=== PATIENT | male | born 1950 | race Caucasian/White ===

== ENCOUNTER 2018-05-16 13:11 | Emergency (ER) | payer MEDICARE ==
[2018-05-16 13:25] VITALS: TEMP 97.8
[2018-05-16] MEDS ORDERED: MORPHINE SULFATE 4 MG/ML SYRINGE IVP ONE (13:40)
[2018-05-16] MEDS ORDERED: PROPOFOL 10 MG/ML 20 ML VIAL IV STA (13:40)
--- NOTE | 2018-05-16 13:43 | ED ---
General Adult HPI - General Chief complaint: Extremity Injury, Upper Stated complaint: rt shoulder injury Source: patient Mode of arrival: ambulatory Limitations: no limitations - History of Present Illness Initial comments: Dictation was produced using [employer] dictation software. please excuse any grammatical, word or spelling errors. Chief Complaint: 67-year-old male presents after shoulder pain. History of Present Illness: Patient is a 67-year-old malepast medical history presents with shoulder pain. [place] and fell sideways off of his deck. Patient fell a short amount of distance. He landed on his right side. Patient had difficulty with abduction of his right shoulder. He drove all the way back to [facility] Which Is Approximately 200 Miles Where He Came for Medical Evaluation. He Presented Initially to the Urgent Care or He Was Diagnosed with Shoulder Dislocation. He Was Instructed to Come to the Emergency Department for Further Intervention. The ROS documented in this emergency department record has been reviewed and confirmed by me. Those systems with pertinent positive or negative responses have been documented in the HPI. All other systems are other negative and/or noncontributory. - Related Data Home Medications Medication Instructions Recorded Confirmed Ibuprofen [Motrin Ib] 400 mg PO Q6HR PRN 05/16/18 05/16/18 Previous Rx's Medication Instructions Recorded HYDROcodone/APAP 5-325MG [[place] 1 tab PO Q6HR PRN 3 Days #12 tab 05/16/18 5-325] Allergies Allergy/AdvReac Type Severity Reaction Status Date / Time No Known Allergies Allergy Verified 05/16/18 13:42 Review of Systems ROS Statement: Those systems with pertinent positive or pertinent negative responses have been documented in the HPI. ROS Other: All systems not noted in ROS Statement are negative. Past Medical History Past Medical History: Cancer, Osteoarthritis (OA), Prostate Disorder Additional Past Medical History / Comment(s): SKIN CANCER, prostate CA, glaucoma History of Any Multi-Drug Resistant Organisms: None Reported Past Surgical History: Joint Replacement, Tonsillectomy Additional Past Surgical History / Comment(s): SURGERY FOR GLAUCOMA, CATARACTS BOTH EYES, RIGHT KNEE REPLACEMENT, Past Anesthesia/Blood Transfusion Reactions: No Reported Reaction Past Psychological History: No Psychological Hx Reported Smoking Status: Never smoker Past Alcohol Use History: Daily Past Drug Use History: None Reported - Past Family History Mother Family Medical History: Cancer Father Family Medical History: Cancer Brother(s) Family Medical History: Cancer General Exam - General Exam Comments Initial Comments: PHYSICAL EXAM: General Impression: Alert and oriented x3, not in acute distress HEENT: Normocephalic atraumatic, extra-ocular movements intact, pupils equal and reactive to light bilaterally, mucous membranes moist. Cardiovascular: Heart regular rate and rhythm, S1&S2 audible, no murmurs, rubs or gallops Chest: Lungs clear to auscultation bilaterally, no rhonchi, no wheeze, no rales Abdomen: Bowel sounds present, abdomen soft, non-tender, non-distended, no organomegaly Musculoskeletal: Pulses present and equal in all extremities, no peripheral edema, deep sulcus sign to the right anterior shoulder Motor: Power 5/5 bilaterally, no focal deficits noted Neurological: CN II-XII grossly intact, no focal motor or sensory deficits noted Skin: Intact with no visualized rashes Psych: Normal affect and mood Limitations: no limitations Course Vital Signs 05/16/18 05/16/18 05/16/18 13:18 14:12 14:15 Temperature 97.8 F Pulse Rate 67 65 78 Respiratory 18 18 18 Rate Blood Pressure 132/90 146/79 110/69 O2 Sat by Pulse 97 97 95 Oximetry 05/16/18 05/16/18 05/16/18 14:19 14:23 14:25 Temperature Pulse Rate 83 77 77 Respiratory 16 20 18 Rate Blood Pressure 110/69 108/67 103/63 O2 Sat by Pulse 93 L 95 95 Oximetry 05/16/18 05/16/18 05/16/18 14:29 14:33 14:40 Temperature Pulse Rate 71 70 57 L Respiratory 18 18 18 Rate Blood Pressure 94/58 117/70 141/68 O2 Sat by Pulse 96 98 100 Oximetry 05/16/18 14:53 Temperature Pulse Rate 53 L Respiratory 16 Rate Blood Pressure 135/63 O2 Sat by Pulse 99 Oximetry Procedures - Procedural Sedation Procedural Sedation Start Time: 14:00 Procedural Sedation Stop Time: 14:30 Indications: fracture/dislocation reduction ASA Class: II Mallampati Airway Score: 1 Preparation: vehicle monitor technician applied, pulse oximeter, capnometry used, supplemental O2 applied, suction/airway equipment at bedside, IV secured IV Propofol Dose (mgs): 150 Complications: none Patient Tolerated Procedure: well Medical Decision Making - Medical Decision Making ED course: 67-year-old male presents with shoulder dislocation. Vital signs upon arrival are within acceptable limits. Blood pressure is 132/90. Moderate sedation was using propofol. X-ray showed anterior humeral head dislocation with Hill-Sachs lesion. Approximately 150 mg of propofol was used for bedside sedation. Shoulder reduction was performed at bedside. Postreduction x-ray shows return of he wanted to his anatomic location. Patient is placed in a sling. Patient observed in emergency department status post sedation for several minutes. At time of discharge patient was an Abhijit without complications. Hemodynamically stable, tolerating by mouth. Patient given prescription for [place] when necessary pain. Still to follow-up with orthopedic surgery upon discharge. Disposition Clinical Impression: Dislocation of shoulder region Disposition: HOME SELF-CARE Condition: Good Instructions: Shoulder Dislocation (ED) Prescriptions: HYDROcodone/APAP 5-325MG [[place] 5-325] 1 tab PO Q6HR PRN 3 Days #12 tab PRN Reason: Pain Is patient prescribed a controlled substance at d/c from ED?: Yes If prescribed controlled substance>3 days was MAPS reviewed?: Prescribed <3 Days Referrals: Saqib Glez MD [Primary Care Provider] - 1-2 days Baldev Mahoney MD [STAFF PHYSICIAN] - 1-2 days Time of Disposition: 15:12
--- NOTE | 2018-05-16 13:46 | XR ---
EXAMINATION TYPE: XR shoulder complete RT DATE OF EXAM: 05/16/2018 CLINICAL HISTORY: Right shoulder pain after slip and fall TECHNIQUE: Three views of the right shoulder are obtained. COMPARISON: None. FINDINGS: Depression of the posterior superior humeral head suggests Hill-Sachs impaction fracture in keeping with the current anterior right humeral head dislocation and overlying soft tissue swelling. Acromioclavicular joint demonstrates mild arthropathy with small marginal osteophytes. Ribs on the r ight appear grossly intact. IMPRESSION: Anterior right humeral dislocation. Depression of the posterior superior humeral head sug gests Hill-Sachs deformity/impaction fracture. No discrete Bankart fracture is seen of the glenoid.
--- NOTE | 2018-05-16 14:38 | XR ---
EXAMINATION TYPE: XR shoulder limited RT DATE OF EXAM: 05/16/2018 CLINICAL HISTORY: Post reduction images of the right shoulder after dislocation TECHNIQUE: Frontal view of the right shoulder was obtained. COMPARISON: None. FINDINGS: Prior seen Hill-Sachs deformity/impaction fracture of the posterior superior humeral head i s again appreciated. There is a possible Bankart deformity versus prominent vascular groove of the gl enoid. There is no longer evidence of right shoulder dislocation. Mild acromioclavicular arthropathy is again seen. The visualized ribs are intact and unremarkable. IMPRESSION: Relocation of the right humeral head in appropriate anatomic alignment with redemonstrati on of superior posterior Hill-Sachs impaction fracture of the humeral head and suspicion for nondispl aced bony glenoid Bankart fracture.
[2018-05-16 14:54] VITALS: BP 135/63; PULSE 53; RESP 16
== END 2018-05-16 15:38 | disposition home or self-care (01) ==
LOC: EC 13:11
DX: S43.014A Anterior dislocation of right humerus, initial encounter (principal); W01.0XXA Fall on same level from slipping, tripping and stumbling without subsequent striking against object, initial encounter; Y92.89 Other specified places as the place of occurrence of the external cause
CPT/HCPCS: 99283; 23650; 99152; 99153; 96374; 73020; 73030; J2270; J2704

== ENCOUNTER 2018-05-19 08:46 | Emergency (ER) | payer MEDICARE ==
--- NOTE | 2018-05-19 09:24 | ED ---
Upper Extremity HPI <Dom Coreas - Last Filed: 05/19/18 12:32> - General Source: patient Mode of arrival: ambulatory Limitations: no limitations <Carmelita Covarrubias - Last Filed: 05/19/18 13:01> - General Chief Complaint: Extremity Injury, Upper Stated Complaint: Shoulder Injury Time Seen by Provider: 05/19/18 09:09 - History of Present Illness Initial Comments: 67-year-old male patient presents to the emergency department today for evaluation of possible right shoulder dislocation. Patient states that he was seen here on with a shoulder dislocation after a fall. Patient states that today he was reaching up on a shelf to grab something when he felt it pop out of place again. Patient states he is having some discomfort to the right shoulder but denies any numbness or tingling. Patient denies any other injuries. Patient states he has only had the one previous dislocation of the past. Patient denies any headache, neck pain, back pain, chest pain, shortness of breath, dizziness, weakness, abdominal pain, nausea, vomiting, or difficulties with bowel movements or urination. (Carmelita Covarrubias) - Related Data Home Medications Medication Instructions Recorded Confirmed Ibuprofen [Motrin Ib] 400 mg PO Q6HR PRN 05/16/18 05/16/18 Previous Rx's Medication Instructions Recorded HYDROcodone/APAP 5-325MG [[place] 1 tab PO Q6HR PRN 3 Days #12 tab 05/16/18 5-325] Allergies Allergy/AdvReac Type Severity Reaction Status Date / Time No Known Allergies Allergy Verified 05/19/18 08:58 Review of Systems ROS Other: All systems not noted in ROS Statement are negative. <Dom Coreas - Last Filed: 05/19/18 12:32> ROS Other: All systems not noted in ROS Statement are negative. <Carmelita Covarrubias - Last Filed: 05/19/18 13:01> ROS Statement: Those systems with pertinent positive or pertinent negative responses have been documented in the HPI. Past Medical History Past Medical History: Cancer, Osteoarthritis (OA), Prostate Disorder Additional Past Medical History / Comment(s): SKIN CANCER, prostate CA, glaucoma History of Any Multi-Drug Resistant Organisms: None Reported Past Surgical History: Joint Replacement, Tonsillectomy Additional Past Surgical History / Comment(s): SURGERY FOR GLAUCOMA, CATARACTS BOTH EYES, RIGHT KNEE REPLACEMENT, Past Anesthesia/Blood Transfusion Reactions: No Reported Reaction Past Psychological History: No Psychological Hx Reported Smoking Status: Never smoker Past Alcohol Use History: Daily Past Drug Use History: None Reported - Past Family History Mother Family Medical History: Cancer Father Family Medical History: Cancer Brother(s) Family Medical History: Cancer <Carmelita Covarrubias M - Last Filed: 05/19/18 13:01> General Exam Limitations: no limitations General appearance: alert, in no apparent distress, other (This is a well- developed, well-nourished adult male patient in no acute distress. Vital signs upon presentation are temperature 97.8F, pulse 61, respirations 18, blood pressure 151/101, pulse ox 97% on room air.) Eye exam: Present: normal appearance, PERRL, EOMI. Absent: scleral icterus, conjunctival injection, periorbital swelling ENT exam: Present: normal exam, normal oropharynx, mucous membranes moist Respiratory exam: Present: normal lung sounds bilaterally. Absent: respiratory distress, wheezes, rales, rhonchi, stridor Cardiovascular Exam: Present: regular rate, normal rhythm, normal heart sounds. Absent: systolic murmur, diastolic murmur, rubs, gallop, clicks Extremities exam: Present: normal capillary refill, other (Right arm is pink, warm, and dry. Cap refills less than 3 seconds. Radial pulses 2+ and equal bilaterally. Patient has evidence of right shoulder dislocation.). Absent: normal inspection, full ROM (Decreased range of motion to the right shoulder), tenderness, pedal edema, joint swelling, calf tenderness Neurological exam: Present: alert, oriented X3, CN II-XII intact Psychiatric exam: Present: normal affect, normal mood Skin exam: Present: warm, dry, intact, normal color. Absent: rash <Carmelita Covarrubias M - Last Filed: 05/19/18 13:01> Vital Signs 05/19/18 05/19/18 05/19/18 08:56 10:34 11:57 Temperature 97.8 F 98.6 F Pulse Rate 61 57 L 64 Respiratory 18 18 18 Rate Blood Pressure 151/101 136/67 152/77 O2 Sat by Pulse 97 96 96 Oximetry 05/19/18 05/19/1818 12:04 12:10 12:12 Temperature Pulse Rate 61 73 86 Respiratory 18 16 18 Rate Blood Pressure 144/80 119/77 116/79 O2 Sat by Pulse 96 97 98 Oximetry 05/19/18 05/19/18 12:16 12:21 Temperature Pulse Rate 83 67 Respiratory 18 18 Rate Blood Pressure 118/80 118/80 O2 Sat by Pulse 97 95 Oximetry Procedures - Orthopedic Joint Reduction Joint #1 Consent Obtained: verbal consent, written consent Time Out Performed: Yes Side: right Joint Reduction Location: shoulder Analgesia: none Shoulder Technique Used (if applicable): other Post-Reduction Neuro Exam: intact Post-Reduction Vascular Exam: intact Post Reduction X-Ray Obtained: Yes Post Reduction X-Ray Results: reduced Splint Applied: Yes - Procedural Sedation Procedural Sedation Start Time: 11:57 Procedural Sedation Stop Time: 12:07 Indications: other ASA Class: II Mallampati Airway Score: 1 IV Propofol Dose (mgs): 100 Complications: none Patient Tolerated Procedure: well <Dom Coreas - Last Filed: 05/19/18 12:32> Medical Decision Making <Dom Coreas - Last Filed: 05/19/18 12:32> - Radiology Data Radiology results: report reviewed, image reviewed <Carmelita Covarrubias - Last Filed: 05/19/18 13:01> - Medical Decision Making 67-year-old male patient presented to the emergency department today for evaluation of right shoulder dislocation. Physical examination does reveal deformity to the right anterior shoulder. X-ray did demonstrate an anterior humeral head dislocation. My attending Dr. Coreas was in and did perform reduction of the right shoulder under conscious sedation. Repeat x-ray did show satisfactory reduction of the right shoulder. There is concern for Bankart lesion. Neurovascular status was intact before and after reduction. Patient was placed in a sling and given strict instructions to not use the right arm. Patient does have an appointment with orthopedics at 1530 tomorrow. Patient is urged to keep this appointment. He does have pain medication at home. Return parameters discussed in detail. He verbalizes understanding and agrees with this plan. (Carmelita Covarrubias) - Radiology Data 3 views of the right shoulder obtained. There is been a recurrent anterior dislocation of the glenohumeral joint. There is evidence of Hill-Sachs deformity. This has worsened from previous. No definite bony Bankart lesion is seen. Postreduction views would be suggested. Impression by Dr. Morfin shows recurrent anterior dislocation of the shoulder. One view x-ray of the right shoulder is obtained. Glenohumeral relationships of been restored. Hill-Sachs deformity and humeral head is again identified. A definite bony Bankart is not seen but suspected. Impression by Dr. Morfin shows satisfactory reduction of the right shoulder. (Carmelita Covarrubias) Disposition <Dom Coreas - Last Filed: 05/19/18 12:32> Is patient prescribed a controlled substance at d/c from ED?: No Time of Disposition: 12:38 <Carmelita Covarrubias - Last Filed: 05/19/18 13:01> Clinical Impression: Recurrent dislocation, right shoulder Disposition: HOME SELF-CARE Condition: Good Instructions: Shoulder Dislocation (ED) Additional Instructions: Do not use right arm. Keep arm in sling. Follow-up with orthopedics as you have planned. Return here immediately for any new, worsening, or concerning symptoms. Referrals: Saqib Glez MD [Primary Care Provider] - 1-2 days
--- NOTE | 2018-05-19 10:14 | XR ---
EXAMINATION TYPE: XR shoulder complete RT , 3 VIEWS DATE OF EXAM ORDERED: 05/19/2018 HISTORY: Pain. COMPARISON: Previous study dated 05/16/2018. FINDINGS: There has been a recurrent anterior dislocation of glenohumeral joint. There is evidence o f a Hill-Sachs deformity. This has worsened from previous. No definite bony Bankart lesion is seen. P ost reduction views would BE suggested. IMPRESSION: RECURRENT ANTERIOR DISLOCATION OF THE SHOULDER.
[2018-05-19] MEDS ORDERED: MORPHINE SULFATE 4 MG/ML SYRINGE IVP STA (10:56)
[2018-05-19] MEDS ORDERED: PROPOFOL 10 MG/ML 20 ML VIAL IV STA (11:54)
[2018-05-19 12:14] VITALS: RESP 18
--- NOTE | 2018-05-19 12:33 | XR ---
EXAMINATION TYPE: XR shoulder limited RT , ONE VIEW DATE OF EXAM ORDERED: 05/19/2018 HISTORY: Post reduction. COMPARISON: Previous study of earlier today. FINDINGS: Glenohumeral relationships have been restored. Hill-Sachs deformity in the humeral head is again identified. A definite bony Bankart is not seen but suspected. IMPRESSION: SATISFACTORY REDUCTION OF THE RIGHT SHOULDER.
[2018-05-19 13:24] VITALS: BP 131/74; PULSE 61; TEMP 98.5
== END 2018-05-19 13:33 | disposition home or self-care (01) ==
LOC: EC 08:46
DX: M24.411 Recurrent dislocation, right shoulder (principal); Z85.828 Personal history of other malignant neoplasm of skin; Z85.46 Personal history of malignant neoplasm of prostate; Z96.651 Presence of right artificial knee joint
CPT/HCPCS: 73020; 73030; 99283; 23650; 99152; 96374; J2270; J2704

== ENCOUNTER 2019-06-10 06:00 | Day surgery (SDC) | payer MEDICARE ==
[2019-06-05 12:20] VITALS: BMI 28.5
[~2019-06-10 06:00] MED LIST: LACTATED RINGERS 1,000 ML IV SCH; LIDOCAINE 1% 20 ML VIAL (10MG/ML) FOR IV START INTRADERMA PRN
[2019-06-10 06:34] VITALS: TEMP 98.1
--- NOTE | 2019-06-10 07:41 | PCN ---
PROCEDURE NOTE PROCEDURE: Bone marrow aspirate and biopsy. 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 After obtaining consent from the patient, the procedure was performed in the endoscopy suite under general anesthesia performed by the Anesthesia Team. The patient was put in the left lateral decubitus position. The right posterior superior iliac crest was localized. Skin was prepped with ChloraPrep, all sterile procedures were followed with. Two mL 1% Xylocaine was used for local anesthetic. Coamo-jet needle was inserted, 15 mL of aspirate and 1 cm core biopsy was obtained without any difficulties. Pressure applied afterwards. There was negligible blood loss. Patient tolerated the procedure very well without any immediate complications. MMODL / IJN: [id number] /
[2019-06-10 07:53] VITALS: BP 125/83; PULSE 66; RESP 18
[2019-06-10 07:54] LABS: Basophils # (A) 0.1 k/uL (0-0.2); Basophils % (A) 2 %; Eosinophils # (A) 0.2 k/uL (0-0.7); Eosinophils % (A) 4 %; HCT 44.9 % (39.0-53.0); HGB 14.7 gm/dL (13.0-17.5); Lymphocytes # (A) 0.6 k/uL (1.0-4.8); Lymphocytes % (A) 11 %; MCH 29.9 pg (25.0-35.0); MCHC 32.7 g/dL (31.0-37.0); MCV 91.4 fL (80.0-100.0); Mean Platelet Volume 7.3; Monocytes # (A) 0.4 k/uL (0-1.0); Monocytes % (A) 7 %; Neutrophils # (A) 3.9 k/uL (1.3-7.7); Neutrophils % (A) 72 %; Platelet Count 757 k/uL (150-450); RBC 4.91 m/uL (4.30-5.90); RDW 13.6 % (11.5-15.5); WBC 5.4 k/uL (3.8-10.6)
[2019-06-10 08:07] LABS: Reticulocyte % 1.1 % (0.5-2.0)
== END 2019-06-10 08:09 | disposition home or self-care (01) ==
LOC: OR 06:00
PROVIDERS: ATTEND Internal Medicine Hematology & Oncology
DX: D47.3 Essential (hemorrhagic) thrombocythemia (principal); Z85.46 Personal history of malignant neoplasm of prostate; Z79.1 Long term (current) use of non-steroidal anti-inflammatories (NSAID); Z79.82 Long term (current) use of aspirin; Z85.828 Personal history of other malignant neoplasm of skin; Z98.42 Cataract extraction status, left eye; Z98.41 Cataract extraction status, right eye; Z96.651 Presence of right artificial knee joint; Z96.611 Presence of right artificial shoulder joint; Z80.9 Family history of malignant neoplasm, unspecified
CPT/HCPCS: 38222; 85025; 85045

== ENCOUNTER 2021-09-07 08:57 | Day surgery (SDC) | payer MEDICARE ==
--- NOTE | 2021-09-07 08:24 | P.GSHP ---
History of Present Illness H&P Date: 09/07/21 CHIEF COMPLAINT: Colon screen HISTORY OF PRESENT ILLNESS: The patient is a 70-year-old male who presents for colon screen. Lower endoscopy was offered for further evaluation and management. PAST MEDICAL HISTORY: Please see list. PAST SURGICAL HISTORY: Please see list. MEDICATIONS: Please see list. ALLERGIES: Please see list. SOCIAL HISTORY: No illicit drug use FAMILY HISTORY: No reports of Crohn disease or ulcerative colitis. REVIEW OF ORGAN SYSTEMS: CONSTITUTIONAL: No reports of fevers or chills. PHYSICAL EXAM: VITAL SIGNS: Stable GENERAL: Well-developed pleasant in no acute distress. HEENT: No scleral icterus. Extraocular movements grossly intact. Moist buccal mucosa. NECK: Supple without lymphadenopathy. CHEST: Unlabored respirations. Equal bilateral excursions. CARDIOVASCULAR: Regular rate and rhythm. Distal 2+ pulses. ABDOMEN: Soft, nontender, nondistended. MUSCULOSKELETAL: No clubbing, cyanosis, or edema. ASSESSMENT: 1. Colon screen. PLAN: 1. Recommend proceeding with a lower endoscopy Past Medical History Past Medical History: Cancer, Eye Disorder, Osteoarthritis (OA), Prostate Disorder Additional Past Medical History / Comment(s): SKIN CANCER, prostate CA WITH RADIATION, glaucoma History of Any Multi-Drug Resistant Organisms: None Reported Past Surgical History: Joint Replacement, Tonsillectomy Additional Past Surgical History / Comment(s): SURGERY FOR GLAUCOMA, CATARACTS BOTH EYES, RIGHT KNEE REPLACEMENT, Past Anesthesia/Blood Transfusion Reactions: No Reported Reaction Past Psychological History: No Psychological Hx Reported Smoking Status: Never smoker Past Alcohol Use History: Occasional Past Drug Use History: None Reported - Past Family History Mother Family Medical History: Cancer Father Family Medical History: Cancer Brother(s) Family Medical History: Cancer Medications and Allergies Home Medications Medication Instructions Recorded Confirmed Type Equate Pain Med 1 tab PO Q6H PRN 09/05/21 History Hydroxyurea [Hydrea] 1,000 mg PO Q5D 09/05/21 09/05/21 History Hydroxyurea [Hydrea] 500 mg PO Q2D 09/05/21 09/05/21 History Allergies Allergy/AdvReac Type Severity Reaction Status Date / Time No Known Allergies Allergy Verified 09/05/21 11:32
[~2021-09-07 08:57] MED LIST changes: +LIDOCAINE 1% (10MG/ML) FOR IV START INTRADERMA PRN; -LIDOCAINE 1% 20 ML VIAL (10MG/ML) FOR IV START INTRADERMA PRN
[2021-09-07 09:22] VITALS: RESP 16; TEMP 98.6
[2021-09-07] MEDS ORDERED: PROPOFOL 10 MG/ML 20 ML VIAL IV ONE (09:25)
--- NOTE | 2021-09-07 09:55 | P.PCN ---
Date of Procedure: 09/07/21 Description of Procedure: PREOPERATIVE DIAGNOSIS: Colonoscopy screening POSTOPERATIVE DIAGNOSIS: Tubular adenoma ascending colon Poor prep OPERATION: Colonoscopy to the ileocecal valve and appendiceal orifice, cecum Colonoscopy with hot snare polypectomy SURGEON: Caryn Lemon MD. ANESTHESIA: MAC. INDICATIONS: The patient is an 70-year-old male who presents for colonoscopy screening. Benefits and risks were described and informed consent was obtained. DESCRIPTION OF PROCEDURE: The patient had undergone Sutab prep. The patient had been brought into the operating room and laid in the left lateral decubitus position. After adequate intravenous sedation, the rectum was examined with 2% lidocaine jelly. The prostate was unremarkable. External hemorrhoids were encountered. The rectal tone was within normal limits. No lesions were palpated in the rectal vault. An Olympus colonoscope was advanced until the cecum, ileocecal valve and appendiceal orifice were clearly viewed. The prep was poor to fair. Sigmoid diverticulosis was encountered. Colonic polyps were found and removed. No evidence of focal colitis was found. Retroflexion of the scope demonstrated grade 2 internal hemorrhoids without active bleeding or inflammation. The colon was desufflated. The patient had tolerated the procedure well. Withdrawal time was over 6 minutes. FINDINGS: Aronchick preparation quality scale 3 (1-5) Internal hemorrhoids, grade 2 External hemorrhoids, grade 2 Removal of 2 polyps: - Snare polypectomy ascending colon, 5 mm tubulovillous adenoma polyp. Fair to poor prep limiting complete assessment of the mucosa. RECOMMENDATIONS: Repeat colonoscopy in 5 years, 2025 recommend three-day colonoscopy prep, 2 day liquid Plan - Discharge Summary Discharge Rx Participant: No New Discharge Prescriptions: Continue Hydroxyurea [Hydrea] 1,000 mg PO Q5D Equate Pain Med 1 tab PO Q6H PRN PRN Reason: Pain Hydroxyurea [Hydrea] 500 mg PO Q2D Discharge Medication List Equate Pain Med 1 tab PO Q6H PRN 09/05/21 [History] Hydroxyurea [Hydrea] 1,000 mg PO Q5D 09/05/21 [History] Hydroxyurea [Hydrea] 500 mg PO Q2D 09/05/21 [History] Follow up Appointment(s)/Referral(s): Caryn Lemon MD [STAFF PHYSICIAN] - As Needed Patient Instructions/Handouts: Colorectal Polyps (DC) Activity/Diet/Wound Care/Special Instructions: Repeat colonoscopy 5 years, 2025. Colonoscopy prep 3 days advised, isis diet with prep on day 3. Discharge Disposition: HOME SELF-CARE
[2021-09-07 10:14] VITALS: BP 135/72; PULSE 75
== END 2021-09-07 10:32 | disposition home or self-care (01) ==
LOC: ORWHC2ENDO 08:57
PROVIDERS: ATTEND Surgery Plastic and Reconstructive Surgery
DX: Z12.11 Encounter for screening for malignant neoplasm of colon (principal); D12.2 Benign neoplasm of ascending colon; Z86.010 Personal history of colon polyps; M19.90 Unspecified osteoarthritis, unspecified site
CPT/HCPCS: 45385; 88305; J2704

== ENCOUNTER 2025-01-24 06:59 | Inpatient (IN) | payer MEDICARE ==
--- NOTE | 2025-01-24 07:15 | ED ---
Fall HPI - General Chief Complaint: Fall Stated Complaint: Fall Time Seen by Provider: 01/24/25 07:00 Source: patient, RN notes reviewed Mode of arrival: EMS Limitations: no limitations - History of Present Illness Initial Comments: This is a 74-year-old male who presents to the emergency department for a fall. Patient states that that he rolled out of bed this morning and landed on his bottom/left side. He developed pain to the left hip and has been unable to bear weight. Denies hitting his head or sustaining any additional injuries. Not taking any blood thinners. MD Complaint: fall - Related Data Home Medications Medication Instructions Recorded Confirmed Hydroxyurea [Hydrea] 500 mg PO DAILY 09/05/21 01/24/25 Aspirin/Acetaminophen/Caffeine 1 tab PO BID 01/24/25 01/24/25 [Excedrin Extra Strength Caplet] Allergies Allergy/AdvReac Type Severity Reaction Status Date / Time No Known Allergies Allergy Verified 01/24/25 09:48 Review of Systems ROS Statement: Those systems with pertinent positive or pertinent negative responses have been documented in the HPI. ROS Other: All systems not noted in ROS Statement are negative. Past Medical History Past Medical History: Cancer, Eye Disorder, Osteoarthritis (OA), Prostate Disorder Additional Past Medical History / Comment(s): SKIN CANCER, prostate CA WITH RADIATION, glaucoma History of Any Multi-Drug Resistant Organisms: None Reported Past Surgical History: Joint Replacement, Tonsillectomy Additional Past Surgical History / Comment(s): SURGERY FOR GLAUCOMA, CATARACTS BOTH EYES, RIGHT KNEE REPLACEMENT, Past Anesthesia/Blood Transfusion Reactions: No Reported Reaction Past Psychological History: No Psychological Hx Reported Smoking Status: Never smoker Past Alcohol Use History: Occasional Past Drug Use History: None Reported - Past Family History Mother Family Medical History: Cancer Father Family Medical History: Cancer Brother(s) Family Medical History: Cancer General Exam Limitations: no limitations General appearance: alert, in no apparent distress Head exam: Present: atraumatic, normocephalic, normal inspection Respiratory exam: Present: normal lung sounds bilaterally. Absent: respiratory distress, wheezes, rales, rhonchi, stridor Cardiovascular Exam: Present: regular rate, normal rhythm Extremities exam: Present: other (Shortening and external rotation of the left lower extremity. 2+ DP and PT pulses) Neurological exam: Present: alert, oriented X3, CN II-XII intact Psychiatric exam: Present: normal affect, normal mood Skin exam: Present: warm, dry, intact, normal color. Absent: rash Course Vital Signs 01/24/25 01/24/25 08:15 10:24 Temperature 98.3 F 98.4 F Pulse Rate 56 L 66 Respiratory 19 18 Rate Blood Pressure 149/7 144/70 O2 Sat by Pulse 97 95 Oximetry Medical Decision Making - Medical Decision Making This is a 74-year-old male who presents to the emergency department for left hip pain after a fall. Was pt. sent in by a medical professional or institution? @ -No Did you speak to anyone other than the patient for history? @ -No Did you review nursing and triage notes? @ -Yes, and I agree, it is accurate with regards to the patient's symptoms. Were old charts reviewed? @ -No Differential Diagnosis? @ -Differential Musculoskeletal Muscular strain, contusion, ligament sprain, fracture, arthritis, septic arthritis, bursitis, cellulitis, muscle spasm, nerve compression, DVT, arterial occlusion, herpes zoster, electrolyte abnormality, tumor.... This is not meant to be in all inclusive list EKG interpreted by me (3pts min.)? @ -EKG interpreted by me demonstrating the following: Ectopic atrial bradycardia. Ventricular rate 56 bpm, RI interval 178 ms, QRS duration 89 ms, QTc 437 ms X-rays interpreted by me (1pt min.)? @ -Chest x-ray obtained, my interpretation identifies no localized consolidations or infiltrates. X-ray of the left hip/AP pelvis and left femur obtained. My interpretation identifies a left intertrochanteric fracture. CT interpreted by me (1pt min.)? @ -Not obtained U/S interpreted by me (1pt. min.)? @ -Not obtained What testing was considered but not performed? (CT, X-rays, U/S, labs)? Why? @ -None What meds were considered but not given? Why? @ -None Did you discuss the management of the patient with other professionals? @ -Yes, Dr. Clemens, who accepts the patient for admission Did you reconcile home meds? @ -Yes Was smoking cessation discussed for >3mins.? @ -No Was critical care preformed (if so, how long)? @ -No Were there social determinants of health that impacted care today? How? (Homelessness, low income, unemployed, alcoholism, drug addiction, transportation, low edu. Level, literacy, decrease access to med. care, senior care, rehab)? @ -No Was there de-escalation of care discussed even if they declined? (Discuss DNR or withdrawal of care, Hospice)? @ -No What co-morbidities impacted this encounter? (DM, HTN, Smoking, COPD, CAD, Cancer, CVA, Hep., AIDS, mental health diagnosis, sleep apnea, morbid obesity)? @ -Osteoarthritis, thrombocytosis Was patient admitted / discharged? @ -Admitted. X-ray of the left hip/AP pelvis and left femur obtained demonstrating a left intertrochanteric fracture. Preoperative EKG, chest x-ray, and blood work were subsequently obtained. Chest x-ray reveals no acute process. Lab work demonstrates mild leukocytosis and is otherwise unremarkable. Patient admitted to orthopedics for left intertrochanteric fracture. Medicine consulted for medical management. Case discussed with ED attending Dr. Rodriguez. Undiagnosed new problem with uncertain prognosis? @ -None Drug Therapy requiring intensive monitoring for toxicity (Heparin, Nitro, Insulin, Cardizem)? @ -None Were any procedures done? @ -None Diagnosis/symptom? @ -Fall, left intertrochanteric fracture Acute, or Chronic, or Acute on Chronic? @ -Acute Uncomplicated (without systemic symptoms) or Complicated (systemic symptoms)? @ -Uncomplicated Side effects of treatment? @ -None Exacerbation, Progression, or Severe Exacerbation] @ -Not applicable Poses a threat to life or bodily function? @ -Yes, limits his ability to ambulate - Lab Data Result diagrams: 01/24/25 08:32 01/24/25 08:32 - Radiology Data Radiology results: report reviewed, image reviewed Disposition Clinical Impression: Fall, Fracture, intertrochanteric, left femur Disposition: ADMITTED IP TO THIS HOSP
[2025-01-24] MEDS: MORPHINE SULFATE 4 MG/ML SYRINGE IVP STA (08:25)
--- NOTE | 2025-01-24 08:27 | XR ---
EXAMINATION TYPE: XR femur LT, XR Hip LT and AP Pelvis DATE OF EXAM: 01/24/2025 8:07 AM INDICATION: Patient age:Male; 74 years old; Reason for study: Fall; pain COMPARISON: None TECHNIQUE: The left femur was examined in AP and lateral projections. The left hip was examined in AP and lateral projections with additional AP pelvic projection. FINDINGS: Acute displaced comminuted left proximal femur intertrochanteric fracture with lateral apex angulation and shortening. No dislocation. No significant surrounding soft tissue swelling. Degenera tive changes of the visualized lumbar spine. Multiple pelvic phleboliths identified. IMPRESSION: Acute displaced comminuted left proximal femur intertrochanteric fracture with angulation. [facility], , 01/24/2025 8:24 AM
--- NOTE | 2025-01-24 08:29 | XR ---
EXAMINATION TYPE: XR chest 1V DATE OF EXAM: 01/24/2025 8:07 AM COMPARISON: None TECHNIQUE: XR chest 1V Frontal view of the chest. CLINICAL INDICATION:Male, 74 years old with history of Fall; pain FINDINGS: Lungs/Pleura: There is no evidence of pleural effusion, focal consolidation, or pneumothorax. Pulmonary vascularity: Unremarkable. Heart/mediastinum: Cardiomediastinal silhouette is prominent in size. Musculoskeletal: No acute osseous pathology. IMPRESSION: No acute cardiopulmonary disease/process. [facility], , 01/24/2025 8:27 AM
[2025-01-24] MEDS ORDERED: HYDROcodone/APAP 5-325MG 1 EACH TAB PO PRN (08:35)
[2025-01-24] MEDS ORDERED: NALOXONE 0.4 MG/ML 1 ML VIAL IV PRN (08:35)
[2025-01-24] MEDS ORDERED: ACETAMINOPHEN TAB 325 MG TAB PO PRN (08:35)
[2025-01-24] MEDS ORDERED: MORPHINE SULFATE 4 MG/ML SYRINGE IV PRN (08:35)
[2025-01-24 08:38] LABS: Basophils # (A) 0.04 10*3/uL (0.00-0.10); Basophils % (A) 0.4 %; Eosinophils # (A) 0.03 10*3/uL (0.04-0.35); Eosinophils % (A) 0.3 %; HGB 13.6 g/dL (13.0-17.0); Lymphocytes # (A) 0.44 10*3/uL (0.90-5.00); Lymphocytes % (A) 4.1 %; MCH 38.5 pg (27.0-32.0); MCHC 34.9 g/dL (32.0-37.0); MCV 110.5 fL (80.0-97.0); Mean Platelet Volume 9.4 fL (9.5-12.2); Monocytes # (A) 0.74 10*3/uL (0.20-1.00); Neutrophils # (A) 9.33 10*3/uL (1.80-7.70); Neutrophils % (A) 87.8 %; Platelet Count 589 10*3/uL (140-440); RBC 3.53 10*6/uL (4.40-5.60); RDW 12.3 % (11.5-14.5); WBC 10.62 10*3/uL (4.50-10.00)
[2025-01-24 08:53] LABS: ALT 18 U/L (4-49); AST 22 U/L (17-59); African American GFR (CKD) 84 (>60 ml/min/1.73 sqM); Alkaline Phosphatase 78 U/L (38-126); Anion Gap 5 mmol/L; Blood Urea Nitrogen 14 mg/dL (9-20); Calcium 9.1 mg/dL (8.4-10.2); Carbon Dioxide 28 mmol/L (22-30); Chloride 106 mmol/L (98-107); Glucose 138 mg/dL (74-99); Non-African American GFR(CKD) 73 (>60 ml/min/1.73 sqM); Potassium 4.7 mmol/L (3.5-5.1); Sodium 139 mmol/L (137-145); Total Bilirubin 0.7 mg/dL (0.2-1.3); Total Protein 6.7 g/dL (6.3-8.2)
[2025-01-24 08:58] LABS: Prothrombin Time 10.7 sec (10.0-12.5)
[2025-01-24 10:01] LABS: Spherocytes Present
[2025-01-24] MEDS: PANTOPRAZOLE 40 MG/10 ML VIAL IV SCH (10:02)
[2025-01-24] MEDS ORDERED: HYDROmorphone 0.5 MG/0.5 ML SYRINGE IVP PRN ×2 (10:18)
[2025-01-24] MEDS ORDERED: NA PHOS,M-B/NA PHOS,DI-BA 133 ML ENEMA RECTAL PRN (10:18)
[2025-01-24] MEDS ORDERED: bisacodyL 10 MG SUPP RECTAL PRN (10:18)
[2025-01-24] MEDS ORDERED: MAGNESIUM HYDROXIDE 2,400 MG/30 ML CUP PO PRN (10:18)
[2025-01-24] MEDS: HYDROmorphone 0.5 MG/0.5 ML SYRINGE IVP PRN (11:03)
--- NOTE | 2025-01-24 12:52 | P.HPOR ---
History of Present Illness H&P Date: 01/24/25 Chief Complaint: Left IT hip fracture Patient is seen at bedside this morning. He was admitted through the ED early this morning after suffering a fall at home resulting in a left hip fracture. He has pain at the left hip as expected but denies any other new complaints. He denies numbness, tingling or calf pain. Review of systems is negative for fever, chills, chest pain, shortness of breath or other Review of Systems All systems: negative Constitutional: Denies chills, Denies fever Eyes: denies blurred vision, denies pain Ears, nose, mouth and throat: Denies headache, Denies sore throat Cardiovascular: Denies chest pain, Denies shortness of breath Respiratory: Denies cough Gastrointestinal: Denies abdominal pain, Denies diarrhea, Denies nausea, Denies vomiting Musculoskeletal: Denies myalgias Integumentary: Denies pruritus, Denies rash Neurological: Denies numbness, Denies weakness Psychiatric: Denies anxiety, Denies depression Endocrine: Denies fatigue, Denies weight change Past Medical History Past Medical History: Cancer, Eye Disorder, Osteoarthritis (OA), Prostate Disorder Additional Past Medical History / Comment(s): SKIN CANCER, prostate CA WITH RADIATION, glaucoma History of Any Multi-Drug Resistant Organisms: None Reported Past Surgical History: Joint Replacement, Tonsillectomy Additional Past Surgical History / Comment(s): SURGERY FOR GLAUCOMA, CATARACTS BOTH EYES, RIGHT KNEE REPLACEMENT, Past Anesthesia/Blood Transfusion Reactions: No Reported Reaction Past Psychological History: No Psychological Hx Reported Smoking Status: Never smoker Past Alcohol Use History: Occasional Past Drug Use History: None Reported - Past Family History Mother Family Medical History: Cancer Father Family Medical History: Cancer Brother(s) Family Medical History: Cancer Medications and Allergies Home Medications Medication Instructions Recorded Confirmed Type RX: Hydroxyurea [Hydrea] 500 mg PO DAILY 09/05/21 01/24/25 History Aspirin/Acetaminophen/Caffeine 1 tab PO BID 01/24/25 01/24/25 History [Excedrin Extra Strength Caplet] Allergies Allergy/AdvReac Type Severity Reaction Status Date / Time No Known Allergies Allergy Verified 01/24/25 09:48 Physical Examination Inspection of the lower extremities shows a shortened externally rotated left lower extremity. There are no wounds, erythema or ecchymoses. The knee is nontender without effusion. He has painless range of motion of the knee, ankle foot and toes. Range of motion of the left hip is not tested due to fracture. Neurovascular status is intact throughout the lower extremity with motor and sensation fully intact. Calf is soft and nontender. 2+ dorsalis pedis pulse and less than 2 second cap refill is present. Results Left IT femur fracture with angulation - Labs Labs: Abnormal Lab Results - Last 24 Hours (Table) 01/24/25 01/24/25 Range/Units 08:32 08:32 WBC 10.62 H (4.50-10.00) 10*3/uL RBC 3.53 L (4.40-5.60) 10*6/uL Hct 39.0 L (39.6-50.0) % MCV 110.5 H (80.0-97.0) fL MCH 38.5 H (27.0-32.0) pg Plt Count 589 H (140-440) 10*3/uL MPV 9.4 L (9.5-12.2) fL Neutrophils # 9.33 H (1.80-7.70) 10*3/uL Lymphocytes # 0.44 L (0.90-5.00) 10*3/uL Eosinophils # 0.03 L (0.04-0.35) 10*3/uL Glucose 138 H (74-99) mg/dL H & H 01/24/25 Range/Units 08:32 Hgb 13.6 (13.0-17.0) g/dL Hct 39.0 L (39.6-50.0) % Coagulation 01/24/25 Range/Units 08:32 INR 1.0 (<1.2) Result Diagrams: 01/24/25 08:32 01/24/25 08:32 - Diagnostic results Hip x-ray: report reviewed, image reviewed Assessment and Plan (1) Fracture, intertrochanteric, left femur Narrative/Plan: Plan is to proceed with Gamma nail/IM hip screw for left IT femur fracture, tomorrow morning, 01/25/25. Patient has been informed of risks and benefits. He desires to proceed. He has been placed NPO after MN. Procedure and consent has been ordered. Anesthesia has been notified. He will likely need assistance with D/C planning and ECF placement post op. Continue pain management, medical management, and DVT prophylaxis. Current Visit: Yes Status: Acute Priority: Medium Code(s): S72.142A - DISPLACED INTERTROCHANTERIC FRACTURE OF LEFT FEMUR, INIT SNOMED Code(s): 534477328 Time with Patient: Less than 30
[2025-01-24] MEDS: LACTATED RINGERS 1,000 ML IV SCH (19:00)
[2025-01-24] MEDS: HYDROcodone/APAP 5-325MG 1 EACH TAB PO PRN (20:52)
[2025-01-24] MEDS: SENNOSIDES-DOCUSATE SODIUM 1 EACH TAB PO SCH (20:52)
[2025-01-24] MEDS: ASPIRIN-ACET-CAFF 250-250-65MG 1 EACH TAB PO SCH (20:53)
--- NOTE | 2025-01-24 21:50 | P.CONS ---
History of Present Illness - Reason for Consult Consult date: 01/24/25 Medical management/surgical clearance - Chief Complaint Fall/hip pain - History of Present Illness 74-year-old male, with history of osteoarthritis and prostate disorder, who presents to the emergency department for a fall. Patient states that that he rolled out of bed this morning and landed on his bottom/left side. He developed pain to the left hip and has been unable to bear weight. Denies hitting his head or sustaining any additional injuries. Not taking any blood thinners. Blood work reveals WBC of 10.6, hemoglobin of 13.6 and platelet count of 589, sodium 139, potassium 4.7, BUN/creatinine 14/1.2 and blood glucose of 138 EKG interpreted by me demonstrating the following: Ectopic atrial bradycardia. Ventricular rate 56 bpm, VT interval 178 ms, QRS duration 89 ms, QTc 437 ms -Chest x-ray obtained, no localized consolidations or infiltrates. -X-ray of the left hip/AP pelvis and left femur obtained; left intertrochanteric fracture. Review of Systems REVIEW OF SYSTEMS: CONSTITUTIONAL: No fever, no malaise, no fatigue. HEENT: No recent visual problems or hearing problems. Denied any sore throat. CARDIOVASCULAR: No chest pain, orthopnea, PND, no palpitations, no syncope. PULMONARY: No shortness of breath, no cough, no hemoptysis. GASTROINTESTINAL: No diarrhea, no nausea, no vomiting, no abdominal pain. NEUROLOGICAL: No headaches, no weakness, no numbness. HEMATOLOGICAL: Denies any bleeding or petechiae. GENITOURINARY: Denies any burning micturition, frequency, or urgency. MUSCULOSKELETAL/RHEUMATOLOGICAL: Denies any joint pain, swelling, or any muscle pain. ENDOCRINE: Denies any polyuria or polydipsia. The rest of the 14-point review of systems is negative. Past Medical History Past Medical History: Cancer, Eye Disorder, Osteoarthritis (OA), Prostate Disorder Additional Past Medical History / Comment(s): SKIN CANCER, prostate CA WITH RADIATION, glaucoma History of Any Multi-Drug Resistant Organisms: None Reported Past Surgical History: Joint Replacement, Tonsillectomy Additional Past Surgical History / Comment(s): SURGERY FOR GLAUCOMA, CATARACTS BOTH EYES, RIGHT KNEE REPLACEMENT, Past Anesthesia/Blood Transfusion Reactions: No Reported Reaction Past Psychological History: No Psychological Hx Reported Smoking Status: Never smoker Past Alcohol Use History: Occasional Additional Past Alcohol Use History / Comment(s): 2-3 most days Past Drug Use History: None Reported - Past Family History Mother Family Medical History: Cancer Father Family Medical History: Cancer Brother(s) Family Medical History: Cancer Medications and Allergies Home Medications Medication Instructions Recorded Confirmed Type Hydroxyurea [Hydrea] 500 mg PO DAILY 09/05/21 01/24/25 History Aspirin/Acetaminophen/Caffeine 1 tab PO BID 01/24/25 01/24/25 History [Excedrin Extra Strength Caplet] Allergies Allergy/AdvReac Type Severity Reaction Status Date / Time No Known Allergies Allergy Verified 01/24/25 09:48 Physical Exam Vitals: Vital Signs Temp Pulse Pulse Resp BP BP Pulse Ox 01/24/25 19:34 98.6 F 64 17 149/74 94 L 01/24/25 10:24 98.4 F 66 18 144/70 95 01/24/25 08:15 98.3 F 56 L 19 149/7 97 Intake and Output 01/24/25 01/24/25 01/24/25 06:59 14:59 22:59 Output Total 500 Balance -500 Output: Urine 500 Other: Weight 81.647 kg 81.647 kg General appearance: alert, in no apparent distress Head exam: Present: atraumatic, normocephalic, normal inspection Respiratory exam: Present: normal lung sounds bilaterally. Absent: respiratory distress, wheezes, rales, rhonchi, stridor Cardiovascular Exam: Present: regular rate, normal rhythm Extremities exam: Present: other (Shortening and external rotation of the left lower extremity. 2+ DP and PT pulses) Neurological exam: Present: alert, oriented X3, CN II-XII intact Psychiatric exam: Present: normal affect, normal mood Skin exam: Present: warm, dry, intact, normal color. Absent: rash Results CBC & Chem 7: 01/24/25 08:32 01/24/25 08:32 Labs: Abnormal Lab Results - Last 24 Hours (Table) 01/24/25 01/24/25 Range/Units 08:32 08:32 WBC 10.62 H (4.50-10.00) 10*3/uL RBC 3.53 L (4.40-5.60) 10*6/uL Hct 39.0 L (39.6-50.0) % MCV 110.5 H (80.0-97.0) fL MCH 38.5 H (27.0-32.0) pg Plt Count 589 H (140-440) 10*3/uL MPV 9.4 L (9.5-12.2) fL Neutrophils # 9.33 H (1.80-7.70) 10*3/uL Lymphocytes # 0.44 L (0.90-5.00) 10*3/uL Eosinophils # 0.03 L (0.04-0.35) 10*3/uL Glucose 138 H (74-99) mg/dL Assessment and Plan Assessment: 1. Fall/left intertrochanteric femoral fracture -Patient has been placed on bedrest; n.p.o. - Pain control with IV Dilaudid - EKG completed in ED reveals ectopic atrial bradycardia; no acute ST or T wave changes Patient has been evaluated by surgery and is scheduled for OR tomorrow morning 2. Leukocytosis; likely reactive; we will monitor CBC 3. Essential thrombocythemia; platelet count stable at 589; patient takes h ydroxyurea 4. Gastroesophageal reflux disease; PPI DVT prophylaxis; SCDs given surgical procedure scheduled for tomorrow morning CODE STATUS; full code
[2025-01-25] MEDS ORDERED: TRANEXAMIC 1,000 MG/100ML-NACL 1,000 MG in SALINE 1 100ML.BAG IVPB PRN (05:00)
[2025-01-25] MEDS: HYDROXYUREA 500 MG CAP PO SCH (09:03)
[2025-01-25 09:52] LABS: HCT 36.3 % (39.6-50.0); HGB 12.2 g/dL (13.0-17.0); MCH 38.7 pg (27.0-32.0); MCHC 33.6 g/dL (32.0-37.0); MCV 115.2 FL (80.0-97.0); Mean Platelet Volume 9.6 FL (9.5-12.2); NRBC Per 100 WBC 0 X 10*3/uL (0.00-0.01); Platelet Count 539 X 10*3/uL (140-440); RBC 3.15 X 10*6/uL (4.40-5.60); RDW 12.8 % (11.5-14.5); WBC 6.73 X 10*3/uL (4.50-10.00)
[2025-01-25] MEDS ORDERED: PHENYLEPHRINE 10 MG/ML VIAL ONE (09:53)
[2025-01-25] MEDS ORDERED: fentaNYL (PF) 50 MCG/ML 2 ML AMP ONE (09:53)
[2025-01-25] MEDS ORDERED: MIDAZOLAM 2 MG/2 ML VIAL ONE (09:53)
[2025-01-25] MEDS ORDERED: SUCCINYLCHOLINE CHLORIDE 200 MG/10 ML VIAL IV ONE (09:53)
[2025-01-25] MEDS ORDERED: PROPOFOL 10 MG/ML 20 ML VIAL IV ONE (09:53)
[2025-01-25] MEDS: SODIUM CHLORIDE 0.9% 50 ML with ceFAZolin 2,000 MG IV ONE (09:56)
[2025-01-25] MEDS: LACTATED RINGERS 1,000 ML IV ONE ×2 (09:56→10:21)
[2025-01-25 09:57] LABS: BUN/Creat Ratio 11.09 Ratio (12.00-20.00); Blood Urea Nitrogen 12.2 mg/dL (9.0-27.0); Calcium 8.9 mg/dL (8.7-10.3); Carbon Dioxide 24.3 mmol/L (21.6-31.8); Chloride 106 mmol/L (96-109); Glucose 122 mg/dL (70-110); Potassium 4.4 mmol/L (3.5-5.5); Sodium 142 mmol/L (135-145)
[2025-01-25 11:15] LABS: Basophils # (A) 0.03 X 10*3/uL (0.00-0.10); Basophils % (A) 0.4 %; Eosinophils # (A) 0.03 X 10*3/uL (0.04-0.35); Eosinophils % (A) 0.4 %; Lymphocytes # (A) 0.53 X 10*3/uL (0.90-5.00); Lymphocytes % (A) 7.9 %; Macrocytosis (M) 2+ (None Seen); Monocytes # (A) 0.95 X 10*3/uL (0.20-1.00); Monocytes % (A) 14.1 %; Neutrophils # (A) 5.17 X 10*3/uL (1.80-7.70); Neutrophils % (A) 76.9 %
[2025-01-25] MEDS: MEPERIDINE 25 MG/ML SYRINGE IVP STA (11:35)
--- NOTE | 2025-01-25 11:52 | XR ---
EXAMINATION TYPE: XR Hip Complete LT, FL guidance operating room Intraoperative/procedural fluoroscop ic services were provided. CLINICAL INDICATION:Male, 74 years old with history of LEFT IM NAIL; , PH FINDINGS: Postsurgical changes from left proximal femoral intramedullary nail placement for previously seen lef t femur intratrochanteric fracture. Hardware appears intact and appropriately aligned. No radiographi c evidence for complication. Total fluoroscopy time is 40.4 seconds. DAP: 3.9738 Gycm2 Please see the operative/procedural note for further details. [facility], , 01/25/2025 11:50 AM
[2025-01-25] MEDS: MULTIVITAMINS, THERA 1 EACH TAB PO SCH (13:07)
[2025-01-25] MEDS: ceFAZolin 2 GM in DEXTROSE 5% IN WATER 50 ML IVPB SCH (16:47)
--- NOTE | 2025-01-25 21:23 | P.PN ---
Subjective Progress Note Date: 01/25/25 74-year-old male, with history of osteoarthritis and prostate disorder, who presents to the emergency department for a fall. Patient states that that he rolled out of bed this morning and landed on his bottom/left side. He developed pain to the left hip and has been unable to bear weight. Denies hitting his head or sustaining any additional injuries. Not taking any blood thinners. Blood work reveals WBC of 10.6, hemoglobin of 13.6 and platelet count of 589, sodium 139, potassium 4.7, BUN/creatinine 14/1.2 and blood glucose of 138 EKG interpreted by me demonstrating the following: Ectopic atrial bradycardia. Ventricular rate 56 bpm, ID interval 178 ms, QRS duration 89 ms, QTc 437 ms -Chest x-ray obtained, no localized consolidations or infiltrates. -X-ray of the left hip/AP pelvis and left femur obtained; left intertrochanteric fracture. --Patient is scheduled for OR this morning Objective - Vital Signs Vital signs: Vital Signs Temp 98.3 F 01/25/25 07:50 Pulse 62 01/25/25 07:50 Resp 17 01/25/25 07:50 BP 134/72 01/25/25 07:50 Pulse Ox 93 L 01/25/25 07:50 FiO2 Intake & Output 01/24/25 01/25/25 01/25/25 18:59 06:59 18:59 Intake Total 550 Output Total 500 600 Balance -500 -600 550 Weight 81.647 kg Intake: IV 550 Output: Urine 500 600 Other: Voiding Method Urinal Urinal - Exam General appearance: alert, in no apparent distress Head exam: Present: atraumatic, normocephalic, normal inspection Respiratory exam: Present: normal lung sounds bilaterally. Absent: respiratory distress, wheezes, rales, rhonchi, stridor Cardiovascular Exam: Present: regular rate, normal rhythm Extremities exam: Present: other (Shortening and external rotation of the left lower extremity. 2+ DP and PT pulses) Neurological exam: Present: alert, oriented X3, CN II-XII intact Psychiatric exam: Present: normal affect, normal mood Skin exam: Present: warm, dry, intact, normal color. Absent: rash - Labs CBC & Chem 7: 01/25/25 03:30 01/25/25 03:30 Labs: Abnormal Lab Results - Last 24 Hours (Table) 01/25/25 01/25/25 Range/Units 03:30 03:30 RBC 3.15 L (4.40-5.60) X 10*6/uL Hgb 12.2 L (13.0-17.0) g/dL Hct 36.3 L (39.6-50.0) % MCV 115.2 H (80.0-97.0) FL MCH 38.7 H (27.0-32.0) pg Plt Count 539 H (140-440) X 10*3/uL BUN/Creatinine Ratio 11.09 L (12.00-20.00) Ratio Glucose 122 H (70-110) mg/dL Assessment and Plan Assessment: 1. Fall/left intertrochanteric femoral fracture -Patient has been placed on bedrest; n.p.o. - Pain control with IV Dilaudid - EKG completed in ED reveals ectopic atrial bradycardia; no acute ST or T wave changes Patient has been evaluated by surgery and is scheduled for OR tomorrow morning 2. Leukocytosis; likely reactive; we will monitor CBC 3. Essential thrombocythemia; platelet count stable at 589; patient takes hydroxyurea 4. Gastroesophageal reflux disease; PPI DVT prophylaxis; SCDs given surgical procedure scheduled for tomorrow morning CODE STATUS; full code
[2025-01-26] MEDS: ONDANSETRON 4 MG/2 ML VIAL IVP PRN (03:06)
--- NOTE | 2025-01-26 05:26 | OP ---
OPERATIVE REPORT DATE OF SERVICE : 01/25/2025 PREOPERATIVE DIAGNOSIS: Left intertrochanteric hip fracture. POSTOPERATIVE DIAGNOSIS: Left intertrochanteric hip fracture. PROCEDURE PERFORMED: Left intramedullary hip screw fixation for left intertrochanteric hip fracture. ANESTHESIA: General endotracheal. ESTIMATED BLOOD LOSS: 25 mL. TOURNIQUET: None. DRAINS: None. COMPLICATIONS: None apparent. DISPOSITION: Postanesthesia care unit. INDICATIONS: Ivan is a very pleasant 74-year-old male, who fell out of bed yesterday morning onto his left hip. He had instant left hip pain. He was brought to [facility] via ambulance. Workup including x-rays revealed a displaced left intertrochanteric hip fracture. He was admitted to my service. Medicine was consulted for preoperative clearance. He is an independent ambulator at home. Recommendation was for intramedullary hip screw fixation for his left intertrochanteric hip fracture. The risks of procedure were discussed with Ivan in detail. These risks include, but are not limited to risk of infection, nerve damage, bleeding, pain, failure of the fracture to heal, hardware irritation and deep infection. All of his questions with regard to the risks of the procedure were answered to his satisfaction. Appropriate informed consent was obtained. DESCRIPTION OF PROCEDURE: The patient was identified in the preoperative holding area. Surgical site was marked by both the patient and myself. He was given 2 g of Ancef IV for prophylactic purposes. He was then transported to the operative suite. He was placed supine on the operating table. A general anesthetic was administered and dosed per the Anesthesia Department without apparent complication. He was then placed onto the [place] fracture table, well-padded in preparation for surgery. The fluoroscopy was then brought in. The fracture was reduced with traction and rotation. We did assess for rotation of the femur and it was proper. When I was satisfied with the reduction, we proceeded. The patient's left lower extremity was then prepped and draped in usual sterile fashion. Standard surgical pause undertaken to ensure that we were operating the correct site and appropriate preoperative antibiotics were given. All staff were in agreement, and we proceeded. Fluoroscopy was then brought in. The tip of the greater trochanter was identified. An approximate 3 cm incision extending laterally on the thigh extending from the tip of the greater trochanter proximally was then made with a 10-blade scalpel. Dissection was carried down sharply to the tensor fascia. The tensor fascia was then incised in line with the incision. This gave me excellent access to the greater trochanter. The curved awl guide with the threaded guide pin was then placed on the medial aspect of the greater trochanter. The threaded guide pin was then inserted, starting at the medial aspect of the greater trochanter and extending distally down the center of the femoral canal. Again, this was confirmed with fluoroscopic imaging. I then proceeded to over-reamed this proximally with the starting drill. This was taken down to just the superior aspect of the lesser tuberosity. This gave us access to the femoral canal. The threaded guide pin was removed, and a ball-tipped guidewire was then inserted down the femoral shaft. Again, this was confirmed with fluoroscopic imaging. I then proceeded to ream the medullary canal. Started with a 9 mm reamer and incrementally increased up to 13 mm reaming of the femoral canal. I had the technical services representative open a Patten Gamma nail. This was a 125 degree by 11 mm x 180 mm nail. This was placed onto the plant changer and checked on the back table. The Gamma nail was then inserted over the ball-tipped guidewire. This was done under fluoroscopic imaging. The ball-tipped guidewire was removed. I then proceeded with placement of the hip screw. A second small incision was made on the lateral thigh. The guide was then placed flush against the lateral wall of the femur. The threaded guide pin was then advanced through the nail into the center of the femoral head on both AP and lateral views. Again, fluoroscopy was utilized to confirm this placement. The tip-apex distance was appropriate. I then measured for length. It measured 115 mm. The drill was set at 115 mm. The guide pin was then over-drilled under fluoroscopic imaging. I then had the technical services representative open a Patten partially-threaded cannulated hip screw. This was a 115 mm screw. This was then inserted over the threaded guide pin. This was placed deep into the center of the femoral head. His bone quality was very good. When it was fully seated, the tip-apex distance was appropriate. It was in the center of the femoral head and it had excellent purchase. I then had the OR staff removed the traction to allow for compression at the fracture site. I then further compressed the fracture through the screw with the compression aspect of the plant changer. At this point, we locked down the set screw fully and then backed off 1/4 turn to allow for further dynamic compression postoperatively. The threaded guide pin was removed. We then proceeded with placement of the distal static locking screw. A third small stab incision was made on the lateral thigh. A 5 mm x 35 mm locking screw was then placed in standard fashion in the static aspect of the oblong hole in the distal aspect of the nail. These screws were appropriate length and seated fully. Again, this was confirmed with fluoroscopic imaging. At this point, no further work was deemed necessary. The final fluoroscopic images were taken. The nail was placed down in the center of the femoral shaft. The hip screw was through the nail and was of appropriate length. The tip-apex distance was appropriate. The distal locking screw was through the static aspect of the oblong hole of the distal nail and was fully seated. At this point, no further work was deemed necessary. The plant changer was removed. The incisions were thoroughly irrigated with sterile saline solution with antibiotic added. The tensor fascia was closed with 0 Vicryl interrupted suture. The subcutaneous tissue was closed with 2-0 Vicryl interrupted suture, and the skin was closed with stainless steel neftali. Sterile dressings were applied. The all sponge and needle counts were deemed correct prior to closure. The patient tolerated the procedure without apparent complication. He was transferred to recovery room in stable condition. BENITEZL / IJN: [id number] /
[2025-01-26] MEDS: traMADol 50 MG TAB PO PRN (08:07)
[2025-01-26 08:40] LABS: Basophils # (A) 0.02 X 10*3/uL (0.00-0.10); Basophils % (A) 0.2 %; Eosinophils # (A) 0 X 10*3/uL (0.04-0.35); Eosinophils % (A) 0 %; HCT 33.8 % (39.6-50.0); HGB 11.3 g/dL (13.0-17.0); Lymphocytes # (A) 0.22 X 10*3/uL (0.90-5.00); Lymphocytes % (A) 1.8 %; MCH 38.3 pg (27.0-32.0); MCHC 33.4 g/dL (32.0-37.0); MCV 114.6 FL (80.0-97.0); Mean Platelet Volume 9.5 FL (9.5-12.2); Monocytes # (A) 1.19 X 10*3/uL (0.20-1.00); Monocytes % (A) 9.7 %; NRBC Per 100 WBC 0 X 10*3/uL (0.00-0.01); Neutrophils # (A) 10.74 X 10*3/uL (1.80-7.70); Neutrophils % (A) 87.7 %; Platelet Count 481 X 10*3/uL (140-440); RBC 2.95 X 10*6/uL (4.40-5.60); RDW 12.1 % (11.5-14.5); WBC 12.24 X 10*3/uL (4.50-10.00)
--- NOTE | 2025-01-26 14:14 | XR ---
EXAMINATION TYPE: XR abdomen acute w cxr DATE OF EXAM: 01/26/2025 1:48 PM COMPARISON: 01/24/2025None. CLINICAL INDICATION: Male, 74 years old with history of abd pain, vomiting; PH[facility] TECHNIQUE: Two radiographic views of the abdomen (upright and supine) and a frontal chest radiograph were obtained. FINDINGS: Heart is mildly enlarged. Interstitial and vascular prominence persists. No maricruz consolidation or pl eural effusion seen. No evidence for free intraperitoneal air. No air-fluid levels. There is left-sided calcifications in the mid abdomen measuring up to 1.4 cm and on the right measuring up to 1.9 cm. Moderate stool in the right side of the colon. No dilated small bowel loops are seen. Multiple pelvic phleboliths. Partially visualized proximal left femoral art gallery internship al fixation. IMPRESSION: 1. Mild cardiomegaly. Similar interstitial density. Correlate to exclude bronchitis, asthma, or a ondina y vascular congestion. 2. No evidence for free air or bowel obstruction. 3. Moderate stool in the right side of the colon. 4. Bilateral nephrolithiasis measuring up to 1.9 cm. [facility], Workstation: [facility], 01/26/2025 2:11 PM
[2025-01-26] MEDS ORDERED: ONDANSETRON 4 MG/2 ML VIAL IVP PRN (14:22)
[2025-01-26] MEDS: FUROSEMIDE 10 MG/ML 4 ML VIAL IV STA (14:32)
[2025-01-26] MEDS: NA PHOS,M-B/NA PHOS,DI-BA 133 ML ENEMA RECTAL ONE (15:59)
[2025-01-26] MEDS: LACTULOSE 20 GM/30 ML CUP PO SCH (21:41)
[2025-01-26] MEDS: PANTOPRAZOLE 40 MG/10 ML VIAL IVP SCH (21:41)
[2025-01-27] MEDS ORDERED: PANTOPRAZOLE 40 MG TABLET PO SCH (07:30)
[2025-01-27 07:35] VITALS: BP 112/65; PULSE 68; RESP 18; TEMP 98.7
[2025-01-27 08:06] LABS: Basophils # (A) 0.01 X 10*3/uL (0.00-0.10); Basophils % (A) 0.1 %; Eosinophils # (A) 0.03 X 10*3/uL (0.04-0.35); Eosinophils % (A) 0.3 %; HCT 31.3 % (39.6-50.0); HGB 10.7 g/dL (13.0-17.0); Lymphocytes # (A) 0.27 X 10*3/uL (0.90-5.00); Lymphocytes % (A) 2.4 %; MCH 38.1 pg (27.0-32.0); MCHC 34.2 g/dL (32.0-37.0); MCV 111.4 FL (80.0-97.0); Monocytes # (A) 1.11 X 10*3/uL (0.20-1.00); Monocytes % (A) 9.9 %; NRBC Per 100 WBC 0 X 10*3/uL (0.00-0.01); Neutrophils # (A) 9.73 X 10*3/uL (1.80-7.70); Neutrophils % (A) 86.8 %; Platelet Count 507 X 10*3/uL (140-440); RBC 2.81 X 10*6/uL (4.40-5.60); RDW 11.9 % (11.5-14.5); WBC 11.21 X 10*3/uL (4.50-10.00)
--- NOTE | 2025-01-27 10:02 | P.PN ---
Subjective Progress Note Date: 01/26/25 74-year-old male, with history of osteoarthritis and prostate disorder, who presents to the emergency department for a fall. Patient states that that he rolled out of bed this morning and landed on his bottom/left side. He developed pain to the left hip and has been unable to bear weight. Denies hitting his head or sustaining any additional injuries. Not taking any blood thinners. Blood work reveals WBC of 10.6, hemoglobin of 13.6 and platelet count of 589, sodium 139, potassium 4.7, BUN/creatinine 14/1.2 and blood glucose of 138 EKG interpreted by me demonstrating the following: Ectopic atrial bradycardia. Ventricular rate 56 bpm, DC interval 178 ms, QRS duration 89 ms, QTc 437 ms -Chest x-ray obtained, no localized consolidations or infiltrates. -X-ray of the left hip/AP pelvis and left femur obtained; left intertrochanteric fracture. --Patient is scheduled for OR this morning 01/26/2025 Patient is seen and evaluated in follow-up today reports he is not feeling well. Patient is extremely nauseated with an episode of vomiting x 2 and per nursing staff was noted to be brown. Hemoglobin is stable at 11.3 with no active bleeding noted. White count is elevated at 12.24 and platelets are 481. Patient reports continued left leg pain as well. Hypoactive bowel sounds noted on exam and will obtain a chest x-ray along with abdominal x-ray with concerns of possible ileus. Will also add bowel regimen. Patient is afebrile reports occasional shortness of breath and continues on 2 L via nasal cannula, encouraged incentive spirometer and increase activity with sitting up more f requently. Review of systems: Constitutional: reports of fatigue, no fever, or chills Cardiovascular: No reports of chest pain or palpitations Respiratory: reports of intermittent shortness of breath occasional cough GI: reports of nausea, vomiting x 2, reports not passing much gas and no bowel movement : No reports of dysuria or retention Neurovascular: reports of generalized weakness continued left leg pain All medications have been reviewed Physical exam: Gen: This is a 74-year-old male who is awake, alert and oriented x 3, well- developed, elderly appearing, ill-appearing HEENT: Head is atraumatic, normocephalic. Pupils equal, round. Sclerae is anicteric. NECK: Supple. No JVD. No lymphadenopathy. No thyromegaly. LUNGS: Diminished breath sounds bilaterally with a few scattered rhonchi. No intercostal retractions. HEART: S1, S2 are muffled ABDOMEN: Soft. Obese, mildly distended bowel sounds hypoactive. No masses. No tenderness. EXTREMITIES: No pedal edema. No calf tenderness. NEUROLOGICAL: Patient is awake, alert and oriented x3. Cranial nerves 2 through 12 are grossly intact. Diffusely weak Assessment: 1. Fall/left intertrochanteric femoral fracture status post left intramedullary hip screw fixation and left intertrochanteric hip fracture repair 2. Leukocytosis; likely reactive; we will monitor CBC, obtain chest x-ray and urinalysis 3. Essential thrombocythemia; platelet count stable at 589; patient takes hydroxyurea 4. Gastroesophageal reflux disease; PPI GI prophylaxis DVT prophylaxis; per orthopedics CODE STATUS; full code Plan: Patient is status post left intramedullary hip screw fixation and admitted to orthopedics being closely monitored. Patient continues to report left hip pain and awaiting PT/OT therapy Patient is nauseated having 2 episodes of vomiting and per nursing staff was noted to be brown although not coffee ground emesis, patient reports has not been eating much with no appetite and feels nauseated, will continue supportive care. Bowel sounds are hypoactive on exam and patient reports is not passing much gas and has not had a bowel movement. Will obtain abdominal x-ray along with chest x-ray as patient is reporting some shortness of breath. Encourage increase activity as tolerated with sitting up out of the bed more often and small frequent meals Encouraged working with physical therapy as patient appears weak and may need ECF for continued strength mobility Pain management and DVT prophylaxis per orthopedics Recommend repeat labs and will follow-up on chest x-ray/abdominal x-ray. Recommend bowel regimen as needed as well as scheduled until having bowel movements The impression and plan of care has been dictated by Stephanie Casiano, Nurse Practitioner as directed. Dr. Lico MD I have performed a history and examination and MDM of this patient, discussed the same with the dictator, and agree with the dictator's assessment and plan as written ,documented as a scribe. Based on total visit time, I have performed more than 50% of the visit. Objective - Vital Signs Vital signs: Vital Signs Temp 98.3 F 01/26/25 06:54 Pulse 76 01/26/25 06:54 Resp 19 01/26/25 06:54 BP 150/77 01/26/25 06:54 Pulse Ox 93 L 01/26/25 06:54 FiO2 Intake & Output 01/25/25 01/26/25 01/26/25 18:59 06:59 18:59 Intake Total 1350 Output Total 25 100 300 Balance 1325 -100 -300 Weight 81.647 kg Intake: IV 1350 Output: Urine 100 300 Estimated Blood Loss 25 Other: Voiding Method Urinal Urinal # Voids 5 1 - Labs CBC & Chem 7: 01/27/25 03:14 01/25/25 03:30 Labs: Abnormal Lab Results - Last 24 Hours (Table) 01/25/25 01/25/25 01/26/25 Range/Units 03:30 03:30 03:04 WBC 12.24 H (4.50-10.00) X 10*3/uL RBC 3.15 L 2.95 L (4.40-5.60) X 10*6/uL Hgb 12.2 L 11.3 L (13.0-17.0) g/dL Hct 36.3 L 33.8 L (39.6-50.0) % MCV 115.2 H 114.6 H (80.0-97.0) FL MCH 38.7 H 38.3 H (27.0-32.0) pg Plt Count 539 H 481 H (140-440) X 10*3/uL Immature Gran # 0.07 H (0.00-0.04) X 10*3/uL Neutrophils # 10.74 H (1.80-7.70) X 10*3/uL Lymphocytes # 0.53 L 0.22 L (0.90-5.00) X 10*3/uL Monocytes # 1.19 H (0.20-1.00) X 10*3/uL Eosinophils # 0.03 L 0 L (0.04-0.35) X 10*3/uL Macrocytosis (manual) 2+ A (None Seen) BUN/Creatinine Ratio 11.09 L (12.00-20.00) Ratio Glucose 122 H (70-110) mg/dL
[2025-01-27 10:43] LABS: BUN/Creat Ratio 17.75 Ratio (12.00-20.00); Blood Urea Nitrogen 14.2 mg/dL (9.0-27.0); Calcium 8.8 mg/dL (8.7-10.3); Carbon Dioxide 26.7 mmol/L (21.6-31.8); Chloride 98 mmol/L (96-109); Glucose 134 mg/dL (70-110); Potassium 3.8 mmol/L (3.5-5.5); Sodium 138 mmol/L (135-145)
[2025-01-27 10:44] LABS: Magnesium 2.1 mg/dL (1.5-2.4)
--- NOTE | 2025-01-27 11:39 | P.PN ---
Subjective Progress Note Date: 01/26/25 Principal diagnosis: S/P Gamma nail for left IT femur fracture Patient is seen at bedside this morning. He is postop day #1 from left gamma nail for left IT femur fracture. He has pain at the surgical site as expected but denies any new complaints. He denies numbness, tingling or calf pain. Review of systems is negative for fever, chills, chest pain, shortness of breath or other Objective - Vital Signs Vital signs: Vital Signs Temp 98.8 F 01/26/25 13:34 Pulse 68 01/26/25 13:34 Resp 18 01/26/25 13:34 BP 155/76 01/26/25 13:34 Pulse Ox 89 L 01/26/25 13:34 FiO2 Intake & Output 01/25/25 01/26/25 01/26/25 18:59 06:59 18:59 Intake Total 1350 Output Total 25 100 500 Balance 1325 -100 -500 Weight 81.647 kg Intake: IV 1350 Output: Urine 100 500 Estimated Blood Loss 25 Other: Voiding Method Urinal Urinal # Voids 5 1 - Exam Inspection reveals a benign surgical wound. There is no active bleeding or drainage. Neurovascular status is intact throughout the lower extremity with motor and sensation fully intact. Calf is soft and nontender. 2+ dorsalis pedis pulse and less than 2 second cap refill is present. - Constitutional General appearance: Present: no acute distress - Labs CBC & Chem 7: 01/27/25 03:14 01/27/25 03:14 Labs: Abnormal Lab Results - Last 24 Hours (Table) 01/26/25 Range/Units 03:04 WBC 12.24 H (4.50-10.00) X 10*3/uL RBC 2.95 L (4.40-5.60) X 10*6/uL Hgb 11.3 L (13.0-17.0) g/dL Hct 33.8 L (39.6-50.0) % MCV 114.6 H (80.0-97.0) FL MCH 38.3 H (27.0-32.0) pg Plt Count 481 H (140-440) X 10*3/uL Immature Gran # 0.07 H (0.00-0.04) X 10*3/uL Neutrophils # 10.74 H (1.80-7.70) X 10*3/uL Lymphocytes # 0.22 L (0.90-5.00) X 10*3/uL Monocytes # 1.19 H (0.20-1.00) X 10*3/uL Eosinophils # 0 L (0.04-0.35) X 10*3/uL Assessment and Plan (1) Fracture, intertrochanteric, left femur Narrative/Plan: He will continue with routine postop orthopedic protocol including pain management, wound care, PT, DVT prophylaxis and medical management. Expect that he will transfer to [facility] in next few days Current Visit: Yes Status: Acute Priority: Medium Code(s): S72.142A - DISPLACED INTERTROCHANTERIC FRACTURE OF LEFT FEMUR, INIT SNOMED Code(s): 354748862 Time with Patient: Less than 30
--- NOTE | 2025-01-27 11:43 | P.DS ---
Providers Date of admission: 01/24/25 08:19 Expected date of discharge: 01/27/25 Attending physician: Caleb Clemens Consults: 01/24/25 08:35 Consult Physician Urgent Consulting Provider: Karthikeyan Sanabria Consult Reason/Comments: Medical management, surgical clearance Do you want consulting provider notified?: Yes Primary care physician: Saqib Glez - Discharge Diagnosis(es) (1) Fracture, intertrochanteric, left femur Patient was admitted to the OR on 01/25/25 to undergo a left gamma nail for IT femur fracture. He had suffered from a fall resulting in a left IT femur f racture and desired to proceed with elective surgery after given informed consent. He underwent the above procedure which he tolerated well without complication. Postoperative hospital course has remained without complication. On day of discharge he is afebrile, vital signs stable, labs within acceptable ranges, tolerating by mouth meds and diet, voiding without difficulty, positive flatus, denies abdominal pain or calf pain, pain is controlled on oral pain medication and has no new complaints. Wound is benign, neurovascular status is intact, calf is soft and nontender, abdomen soft and nontender. Review of systems is negative for numbness, tingling, fever, chills, chest pain, shortness of breath, nausea, vomiting, dizziness, headaches, slurred speech or other. Current Visit: Yes Status: Acute Priority: Medium Procedures: Gamma nail left IT femur fracture Patient Condition at Discharge: Fair Plan - Discharge Summary Discharge Rx Participant: No New Discharge Prescriptions: No Action Aspirin/Acetaminophen/Caffeine [Excedrin Extra Strength Caplet] 1 tab PO BID Hydroxyurea [Hydrea] 500 mg PO DAILY Discharge Medication List Hydroxyurea [Hydrea] 500 mg PO DAILY 09/05/21 [History] Aspirin/Acetaminophen/Caffeine [Excedrin Extra Strength Caplet] 1 tab PO BID 01/24/25 [History] Follow up Appointment(s)/Referral(s): Saqib Glez MD [Primary Care Provider] - 1-2 days
--- NOTE | 2025-01-29 14:24 | CDI ---
Documentation Clarification Form Date: 01/29/2025 01:55:24 PM From: Opal Ramachandran RN, CCDS Email: [email or web address] Admit Date: 01/24/2025 08:19:00 AM Patient Name: Britton Richards Visit Number: [id number] Discharge Date: 01/27/2025 05:15:00 PM ATTENTION: The Clinical Documentation Specialists (CDI) and [facility] Coding Staff appreciate your assistance in clarifying documentation. Please respond to the clarification below the line at the bottom and electronically sign. The CDI & [facility] Coding staff will review the response and follow-up if needed. Please note: Queries are made part of the Legal Health Record. If you have any questions, please contact the author of this message via ITS. Stephanie Casiano NP The patient received IV Lasix on 01/26. Please clarify what condition/diagnosis was being treated. History/Risk Factors: Ca, OA and prostate disorder. Presented to the ED after a fall. Found to have left femur intertrochanteric fracture. S/P Left intramedullary hip screw fixation for left intertrochanteric hip fracture on 01/25. Clinical indicators: 01/26 AXR: Mild cardiomegaly. Similar interstitial density. Correlate to exclude bronchitis, asthma or vascular congestion. 01/26 IM: "Will obtain abdominal x-ray along with chest x-ray as patient is reporting some shortness of breath." 01/25 pulse ox 89-96% 01/26 pulse ox 89-95% Treatment: IV Lasix 40mg x1 on 01/26; O2 2-4LNC 01/25-01/26 What diagnosis were you treating with IV Lasix? [ x] Acute pulmonary edema likely secondary to IV fluid [ ] No additional diagnosis [ ] Other, please specify [ ] Unable to determine MTDD
--- NOTE | 2025-02-01 15:58 | P.PN ---
Subjective Progress Note Date: 01/27/25 74-year-old male, with history of osteoarthritis and prostate disorder, who presents to the emergency department for a fall. Patient states that that he rolled out of bed this morning and landed on his bottom/left side. He developed pain to the left hip and has been unable to bear weight. Denies hitting his head or sustaining any additional injuries. Not taking any blood thinners. Blood work reveals WBC of 10.6, hemoglobin of 13.6 and platelet count of 589, sodium 139, potassium 4.7, BUN/creatinine 14/1.2 and blood glucose of 138 EKG interpreted by me demonstrating the following: Ectopic atrial bradycardia. Ventricular rate 56 bpm, MT interval 178 ms, QRS duration 89 ms, QTc 437 ms -Chest x-ray obtained, no localized consolidations or infiltrates. -X-ray of the left hip/AP pelvis and left femur obtained; left intertrochanteric fracture. --Patient is scheduled for OR this morning 01/26/2025 Patient is seen and evaluated in follow-up today reports he is not feeling well. Patient is extremely nauseated with an episode of vomiting x 2 and per nursing staff was noted to be brown. Hemoglobin is stable at 11.3 with no active bleeding noted. White count is elevated at 12.24 and platelets are 481. Patient reports continued left leg pain as well. Hypoactive bowel sounds noted on exam and will obtain a chest x-ray along with abdominal x-ray with concerns of possible ileus. Will also add bowel regimen. Patient is afebrile reports occasional shortness of breath and continues on 2 L via nasal cannula, encouraged incentive spirometer and increase activity with sitting up more f requently. 01/27/2025 Patient is seen in follow-up today reports to feeling much better was able to have bowel movements and his breathing is improving. Will continue with breathing treatments and IV fluids have been discontinued. Recommend bowel regimen and patient is planning on going to [facility] for continued strength and mobility. Review of systems: Constitutional: reports of fatigue, no fever, or chills Cardiovascular: No reports of chest pain or palpitations Respiratory: reports of intermittent shortness of breath occasional cough GI: No reports of further nausea, no further vomiting, reports passing gas and had a bowel movement : No reports of dysuria or retention Neurovascular: reports of generalized weakness continued left leg pain All medications have been reviewed Physical exam: Gen: This is a 74-year-old male who is awake, alert and oriented x 3, well- developed, elderly appearing, ill-appearing HEENT: Head is atraumatic, normocephalic. Pupils equal, round. Sclerae is anicteric. NECK: Supple. No JVD. No lymphadenopathy. No thyromegaly. LUNGS: Diminished breath sounds bilaterally with a few scattered rhonchi. No intercostal retractions. HEART: S1, S2 are muffled ABDOMEN: Soft. Obese, mildly distended bowel sounds hypoactive. No masses. No tenderness. EXTREMITIES: No pedal edema. No calf tenderness. NEUROLOGICAL: Patient is awake, alert and oriented x3. Cranial nerves 2 through 12 are grossly intact. Diffusely weak Assessment: 1. Fall/left intertrochanteric femoral fracture status post left intramedullary hip screw fixation and left intertrochanteric hip fracture repair 2. Leukocytosis; likely reactive; improving 3. Essential thrombocythemia; platelet count stable at 589; patient takes hydroxyurea 4. Gastroesophageal reflux disease; PPI 5. Mild volume overload, secondary to IV fluids, fluids discontinued and patient given IV Lasix GI prophylaxis DVT prophylaxis; per orthopedics CODE STATUS; full code Plan: Patient is status post left intramedullary hip screw fixation and admitted to orthopedics being closely monitored. Patient continues to report left hip pain and awaiting PT/OT therapy Patient was nauseated and maintained on continued antinausea medications. Patient had not had a bowel movement and was placed on bowel regimen is now having bowel movements and reports to feeling somewhat improved. Not much of an appetite but is eating a little better today. Patient did have some mild congestion noted and likely volume overload on the x- ray and was given a dose of Lasix and is feeling improved today. IV fluids have been discontinued and patient has been encouraged to continue with incentive spirometer use and increase activity as tolerated. Recommend to continue with bowel regimen scheduled as well as as needed Encourage increase activity as tolerated with sitting up out of the bed more often and small frequent meals Patient will be going to [facility] for continued strength and mobility pain management and DVT prophylaxis per orthopedics Patient has been instructed to follow-up with primary care provider on discharge Patient is medically stable once cleared by orthopedics Thank you kindly for this consultation. We will continue to follow with orthopedic surgery during hospitalization. The impression and plan of care has been dictated by Stephanie Casiano, Nurse Practitioner as directed. Dr. Lico MD I have performed a history and examination and MDM of this patient, discussed the same with the dictator, and agree with the dictator's assessment and plan as written ,documented as a scribe. Based on total visit time, I have performed more than 50% of the visit. Objective - Vital Signs Vital signs: Vital Signs Temp 98.7 F 01/27/25 07:05 Pulse 68 01/27/25 07:05 Resp 18 01/27/25 07:05 BP 112/65 01/27/25 07:05 Pulse Ox 92 L 01/27/25 08:19 FiO2 Intake & Output 01/26/25 01/27/25 01/27/25 18:59 06:59 18:59 Output Total 900 800 Balance -900 -800 Output: Urine 900 800 Other: Voiding Method Urinal # Voids 2 # Bowel Movements 2 - Labs CBC & Chem 7: 01/27/25 03:14 01/27/25 03:14 Labs: Abnormal Lab Results - Last 24 Hours (Table) 01/27/25 Range/Units 03:14 WBC 11.21 H (4.50-10.00) X 10*3/uL RBC 2.81 L (4.40-5.60) X 10*6/uL Hgb 10.7 L (13.0-17.0) g/dL Hct 31.3 L (39.6-50.0) % MCV 111.4 H (80.0-97.0) FL MCH 38.1 H (27.0-32.0) pg Plt Count 507 H (140-440) X 10*3/uL Immature Gran # 0.06 H (0.00-0.04) X 10*3/uL Neutrophils # 9.73 H (1.80-7.70) X 10*3/uL Lymphocytes # 0.27 L (0.90-5.00) X 10*3/uL Monocytes # 1.11 H (0.20-1.00) X 10*3/uL Eosinophils # 0.03 L (0.04-0.35) X 10*3/uL
== END 2025-01-27 17:15 | DRG 480 ==
LOC: EC 06:59 → 4SSUR 08:19
PROVIDERS: ADMIT Orthopaedic Surgery Sports Medicine; ATTEND Orthopaedic Surgery Sports Medicine
PROC: 0QS706Z Reposition Left Upper Femur with Intramedullary Internal Fixation Device, Open Approach (ICD-10-PCS; principal; 2025-01-25 09:30)
DX: S72.142A Displaced intertrochanteric fracture of left femur, initial encounter for closed fracture (principal); J81.0 Acute pulmonary edema; D47.3 Essential (hemorrhagic) thrombocythemia; D72.829 Elevated white blood cell count, unspecified; K21.9 Gastro-esophageal reflux disease without esophagitis; R06.02 Shortness of breath; W06.XXXA Fall from bed, initial encounter; Z96.651 Presence of right artificial knee joint
CPT/HCPCS: 36415; 71045; 73502; 74022; 80048; 80053; 83735; 85025; 85610; 85730; 93005; 94760; 96374; 96375; 99285